=== PATIENT | male | born 1975 | race African-American/Black ===

== ENCOUNTER 2017-04-15 14:19 | Emergency (ER) | payer OTHER ==
--- NOTE | ~2017-04-15 | CR141 ---
[facility] A Service of [facility] RADIOLOGY TEXT RESULTS PATIENT: KINJAL SOLOMON LOCATION: [place] : 77 UNIT #: [id number] AGE: [address]: Lavonne Tello APRN SEX: M ORDER DR: [id number] [facility] [address] [facility] [place], [place] [address] [id number] MR#: [id number] Acc #: [id number] NAME: KINJAL SOLOMON : 1975 SEX: M STUDY DATE/TIME: 04/15/2017 15:25 UNIT: CFTX ROOM: STUDY DESCRIPTION: CR Hand Min 3 Views Lt Attending Physician: Lavonne Tello A.P.R.N. Ordering Physician: Ed Doctor [id number] [facility] Primary Care Physician: No Primary Care Physician MEDICAL IMAGING REPORT This report is preliminary unless electronic signature is present EXAM Left hand, 3 views History Supplied Left hand pain, laceration over second and third digit. Cut with block trimmer. TECHNIQUE Three views are submitted. FINDINGS There is a soft tissue injury over the terminal aspect of the index finger. Adjacent to the terminal phalanx, there is a radiopaque body which I suspect represents a fracture of the terminal tuft. Remaining bony elements are intact. No other foreign bodies are seen. CONCLUSION Soft tissue injury over the terminal tuft of the distal phalanx of the index finger with an underlying fracture of the terminal tuft. Dictated by... Nikita Wen M.D. THIS IS AN ELECTRONICALLY VERIFIED REPORT Nikita Wen M.D. at 04/16/2017 6:06 PM ELVIRA/jaye TD: 04/15/2017 20:01 JOB #: [id number] [facility] A Service [facility] RADIOLOGY TEXT RESULTS PATIENT: KINJAL SOLOMON LOCATION: [facility] : [birth year] UNIT #: [id number] AGE: [address]: Lavonne Tello APRN SEX: M ORDER DR: MEDICAL IMAGING REPORT Page 1 of 1 COPY
== END 2017-04-15 17:15 ==
LOC: CFTX 14:19 → CED 14:19 → CFTX 15:17
DX: S62.633B Displaced fracture of distal phalanx of left middle finger, initial encounter for open fracture (principal); S61.213A Laceration without foreign body of left middle finger without damage to nail, initial encounter; F17.200 Nicotine dependence, unspecified, uncomplicated; W45.8XXA Other foreign body or object entering through skin, initial encounter; Y92.009 Unspecified place in unspecified non-institutional (private) residence as the place of occurrence of the external cause
CPT/HCPCS: 64450; 73130; 90471; 90715; 99285